=== PATIENT | male | born 1970 | race Caucasian/White ===

== ENCOUNTER 2017-01-11 15:52 | Emergency (ER) | payer OTHER ==
[2017-01-11 16:18] VITALS: BP 137/89; PULSE 97; TEMP 98.6; BMI 30.1
[2017-01-11] MEDS ORDERED: CYCLOBENZAPRINE HCL 10 MG TABLET (FP) ONE (17:42)
[2017-01-11] MEDS ORDERED: KETOROLAC TROMETHAMINE 60 MG/2 ML VIAL ONE (17:42)
[2017-01-11] MEDS ORDERED: CYCLOBENZAPRINE HCL 10 MG TABLET (FP) PO ONE (17:46)
[2017-01-11] MEDS ORDERED: KETOROLAC TROMETHAMINE 60 MG/2 ML VIAL IM ONE (17:46)
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
== END 2017-01-11 19:21 | disposition home or self-care (01) ==
LOC: JERFT 15:52
PROC: 3E0233Z Introduction of Anti-inflammatory into Muscle, Percutaneous Approach (ICD-10-PCS; principal; 2017-01-11)
DX: S39.012A Strain of muscle, fascia and tendon of lower back, initial encounter (principal); S16.1XXA Strain of muscle, fascia and tendon at neck level, initial encounter; X50.0XXA Overexertion from strenuous movement or load, initial encounter; X02.8XXA Other exposure to controlled fire in building or structure, initial encounter; Y92.61 Building [any] under construction as the place of occurrence of the external cause; Y99.0 Civilian activity done for income or pay
CPT/HCPCS: 99281-25

== ENCOUNTER 2017-12-06 12:04 | Emergency (ER) | payer OTHER ==
[2017-12-06 12:29] VITALS: BP 147/93; PULSE 91; TEMP 98.1; BMI 27.9
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
[2017-12-06] MEDS ORDERED: IBUPROFEN 400 MG TABLET (FP) PO ONE ×2 (12:37→13:01)
== END 2017-12-06 13:30 | disposition home or self-care (01) ==
LOC: JER 12:04
DX: S46.811A Strain of other muscles, fascia and tendons at shoulder and upper arm level, right arm, initial encounter (principal); X50.0XXA Overexertion from strenuous movement or load, initial encounter; Y93.89 Activity, other specified; Y92.89 Other specified places as the place of occurrence of the external cause; Y99.0 Civilian activity done for income or pay
CPT/HCPCS: 99281-25

== ENCOUNTER 2019-10-19 22:28 | Observation (INO) | payer OTHER, BC ==
[2019-10-19 22:55] VITALS: BMI 28.7
[2019-10-19] MEDS ORDERED: IBUPROFEN 600 MG TABLET (FP) PO ONE (23:08)
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
[2019-10-19] MEDS ORDERED: SODIUM CHLORIDE 0.9% 500 ML INFUS.BAG IV ONE (23:58)
[2019-10-20 00:21] LABS: ARTERIAL BLD GAS O2 SATURATION 97.6 % (95-98); ARTERIAL BLOOD GAS BASE EXCESS 1.9 meq/l (-2-2); ARTERIAL BLOOD GAS PCO2 30.6 mmHg (35-45); ARTERIAL BLOOD GAS PO2 92.4 mmHg (80-100); ARTERIAL BLOOD GAS pH 7.51 (7.35-7.45); CARBOXYHEMOGLOBIN 0.9 % (0-2)
[2019-10-20 00:25] LABS: ALLENS TEST POSITIVE
[2019-10-20] MEDS ORDERED: IBUPROFEN 600 MG TABLET (FP) PO ONE (00:33)
[2019-10-20] MEDS ORDERED: LIDOCAINE 5% TOPICAL PATCH TP ONE (00:48)
[2019-10-20 00:50] LABS: BASO % 0.8 % (0-2.0); EOS % 0.1 % (0-4.5); HEMATOCRIT 39.1 % (35.4-49); HEMOGLOBIN 13.4 GM/dL (11.7-16.9); LYMPH % 16.7 % (8-40); MCH 29.5 pg (25.7-33.7); MCHC 34.3 g/dl (32.0-35.9); MEAN CELL VOLUME 85.9 fl (80-96); MEAN PLT VOLUME 8.8 fl (7.5-11.1); MONO % 6.4 % (3.8-10.2); PLATELET COUNT 287 K/MM3 (134-434); RBC 4.56 M/mm3 (4.00-5.60); RDW 13.5 % (11.9-15.9); WHITE BLOOD COUNT 12.6 K/mm3 (4.0-10.0)
[2019-10-20 01:12] LABS: ALBUMIN 3.8 g/dl (3.4-5.0); BILIRUBIN,TOTAL 0.4 mg/dL (0.2-1); BLOOD UREA NITROGEN 26.6 mg/dL (7-18); CREATININE 1.4 mg/dL (0.55-1.3); TOT PROT 7.1 g/dl (6.4-8.2)
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
[2019-10-20] MEDS ORDERED: SODIUM CHLORIDE 1,000 ML IV SCH (02:45)
--- NOTE | 2019-10-20 03:29 | HP ---
CHIEF COMPLAINT: Right arm shoulder pain PCP: Dr. 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 Patient complains of worsening arm pain with abduction of his arm. He has a history of sprains and multiple tears in his right shoulder, but no fractures or dislocations. He denies any other acute pains, and endorses chronic lower back pain from his degenerative disc disease. He denies shortness of breath, abdominal pain, nausea, vomiting, diarrhea, headaches, and changes in vision. In the ED patient was noted to have PVC's on his EKG. However patient states that he has had PVCs on previous EKGs done, has had an echo and stress test done multiple years ago which were negative. He endorses adequate water intake along with 5 cups of coffee consumption daily. ER course was notable for: (1)EKG completed which showed frequent PVCs, Qtc 423 (2)Chest X-Ray was completed which did not show any acute pathology. 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 Allergies No Known Allergies Allergy (Verified 10/19/19 22:55) HOME MEDICATIONS: Home Medications Medication Instructions Recorded Cyclobenzaprine HCl [Flexeril -] 10 mg PO TID PRN #15 tablet 02/16/16 Duloxetine HCl [Cymbalta] 120 mg PO DAILY 02/16/16 Lisdexamfetamine Dimesylate 30 mg PO DAILY 02/16/16 [Vyvanse] Ibuprofen 800 mg PO TID #30 tablet MDD 3 06/29/16 Oxycodone HCl/Acetaminophen 1 - 2 tab PO Q4H #20 tablet MDD 6 06/29/16 [Percocet 5-325 mg Tablet] Cyclobenzaprine HCl [Flexeril 10 10 mg PO BID PRN #14 tablet 05/18/17 mg] REVIEW OF SYSTEMS CONSTITUTIONAL: Absent: fever, chills, diaphoresis, generalized weakness, malaise, loss of appetite, weight change HEENT: Absent: rhinorrhea, nasal congestion, throat pain, throat swelling, difficulty swallowing, mouth swelling, ear pain, eye pain, visual changes CARDIOVASCULAR: Absent: chest pain, syncope, palpitations, irregular heart rate, lightheadedness , peripheral edema RESPIRATORY: Absent: cough, shortness of breath, dyspnea with exertion, orthopnea, wheezing, stridor, hemoptysis GASTROINTESTINAL: Absent: abdominal pain, abdominal distension, nausea, vomiting, diarrhea, constipation, melena, hematochezia GENITOURINARY: Absent: dysuria, frequency, urgency, hesitancy, hematuria, flank pain, genital pain MUSCULOSKELETAL: Present: Arthralgia, back pain Absent: myalgia, arthralgia, joint swelling, back pain, neck pain SKIN: Absent: rash, itching, pallor HEMATOLOGIC/IMMUNOLOGIC: Absent: easy bleeding, easy bruising, lymphadenopathy, frequent infections ENDOCRINE: Absent: unexplained weight gain, unexplained weight loss, heat intolerance, cold intolerance NEUROLOGIC: Absent: headache, focal weakness or paresthesias, dizziness, unsteady gait, seizure, mental status changes, bladder or bowel incontinence PSYCHIATRIC: Absent: anxiety, depression, suicidal or homicidal ideation, hallucinations. PHYSICAL EXAMINATION Vital Signs - 24 hr 10/19/19 22:52 Temperature 97 F L Pulse Rate 97 H Respiratory 18 Rate Blood Pressure 146/92 O2 Sat by Pulse 100 Oximetry (%) GENERAL: Awake, alert, and fully oriented, in no acute distress. HEAD: Normal with no signs of trauma. EYES: Pupils equal, round and reactive to light, extraocular movements intact, sclera anicteric, conjunctiva clear. No lid lag. EARS, NOSE, THROAT: Ears normal, nares patent, oropharynx clear without exudates. Moist mucous membranes. NECK: Normal range of motion, supple without lymphadenopathy, JVD, or masses. LUNGS: Breath sounds equal, clear to auscultation bilaterally. No wheezes, and no crackles. No accessory muscle use. HEART: Regular rate and irregular rhythm without murmur, rub or gallop. ABDOMEN: Soft, nontender, not distended, normoactive bowel sounds, no guarding, no rebound, no masses. No hepatomegaly or splenomegaly. MUSCULOSKELETAL: Normal range of motion at all joints. No bony deformities or tenderness. No CVA tenderness. UPPER EXTREMITIES: 2+ pulses, warm, well-perfused. No cyanosis. No clubbing. No peripheral edema. LOWER EXTREMITIES: 2+ pulses, warm, well-perfused. No calf tenderness. No peripheral edema. NEUROLOGICAL: Cranial nerves II-XII intact. Normal speech. Normal gait. PSYCHIATRIC: Cooperative. Good eye contact. Appropriate mood and affect. SKIN: Warm, dry, normal turgor, no rashes or lesions noted, normal capillary refill. Laboratory Results - last 24 hr 10/19/19 10/20/19 10/20/19 23:45 00:10 00:10 WBC 12.6 H RBC 4.56 Hgb 13.4 Hct 39.1 MCV 85.9 MCH 29.5 MCHC 34.3 RDW 13.5 Plt Count 287 MPV 8.8 Absolute Neuts (auto) 9.6 H Neutrophils % 76.0 D Lymphocytes % 16.7 D Monocytes % 6.4 Eosinophils % 0.1 D Basophils % 0.8 Nucleated RBC % 0 Anticoagulation Therapy No Result Required. Puncture Site Right radial ABG pH 7.51 H ABG pCO2 at Pt Temp 30.6 L ABG pO2 at Pt Temp 92.4 ABG HCO3 24.0 ABG O2 Sat (Measured) 97.6 ABG O2 Content 17.6 ABG Base Excess 1.9 Jens Test Positive Carboxyhemoglobin 0.9 Methemoglobin 1.0 O2 Delivery Device N/c Oxygen Flow Rate 2 lpm Vent Mode No Result Required. Vent Rate No Result Required. Mechanical Rate No Result Required. Pressure Support Vent No Result Required. Sodium Potassium Chloride Carbon Dioxide Anion Gap BUN Creatinine Est GFR (CKD-EPI)AfAm Est GFR (CKD-EPI)NonAf Random Glucose Calcium Total Bilirubin AST ALT Alkaline Phosphatase Creatine Kinase 253 Creatine Kinase Index 1.0 CK-MB (CK-2) 2.7 Troponin I < 0.02 Total Protein Albumin 10/20/19 00:10 WBC RBC Hgb Hct MCV MCH MCHC RDW Plt Count MPV Absolute Neuts (auto) Neutrophils % Lymphocytes % Monocytes % Eosinophils % Basophils % Nucleated RBC % Anticoagulation Therapy Puncture Site ABG pH ABG pCO2 at Pt Temp ABG pO2 at Pt Temp ABG HCO3 ABG O2 Sat (Measured) ABG O2 Content ABG Base Excess Jens Test Carboxyhemoglobin Methemoglobin O2 Delivery Device Oxygen Flow Rate Vent Mode Vent Rate Mechanical Rate Pressure Support Vent Sodium 141 Potassium 4.0 Chloride 107 Carbon Dioxide 26 Anion Gap 8 BUN 26.6 H Creatinine 1.4 H Est GFR (CKD-EPI)AfAm 66.95 Est GFR (CKD-EPI)NonAf 57.76 Random Glucose 93 Calcium 9.0 Total Bilirubin 0.4 AST 18 ALT 22 Alkaline Phosphatase 80 Creatine Kinase Creatine Kinase Index CK-MB (CK-2) Troponin I Total Protein 7.1 Albumin 3.8 ASSESSMENT/PLAN: 49 M PMH of depression, degenerative disc, and ADHD who presents who presents with frequent PVC. 1) Multiple PVCs -PVC on cardiac monitoring, endorses known history with negative work up in the pat -Continuous cardiac monitoring. -Initial troponin negative, f/u repeat -Echocardiogram for structural causes -TSH f/u -F/U repeat EKG -Cardiology follow up as outpatient 2) LAY -BUN/Creatinine of 26.6/1.4 today -Likely pre-renal -Given 1L Bolus of NS -NS @ 125 ml/hr 3) Hx of Depression and ADHD -Continue home doses of Cymbalta and Vyvanse. DVT: Early ambulation F: NS @ 125 ml/hr E: Trend BMP N: Regular diet Dispo: Admitted to telemetry observation. Visit type - Emergency Visit Emergency Visit: Yes ED Registration Date: 10/20/19 Care time: The patient presented to the Emergency Department on the above date and was hospitalized for further evaluation of their emergent condition. - New Patient This patient is new to me today: Yes Date on this admission: 10/20/19 - Critical Care Critical Care patient: No ATTENDING PHYSICIAN STATEMENT I saw and evaluated the patient. I reviewed the resident's note and discussed the case with the resident. I agree with the resident's findings and plan as documented. SUBJECTIVE: OBJECTIVE: ASSESSMENT AND PLAN:
[2019-10-20 07:44] LABS: HEMATOCRIT 35.4 % (35.4-49); HEMOGLOBIN 12.1 GM/dL (11.7-16.9); MCH 29.5 pg (25.7-33.7); MCHC 34.3 g/dl (32.0-35.9); MEAN CELL VOLUME 86.1 fl (80-96); MEAN PLT VOLUME 9.4 fl (7.5-11.1); PLATELET COUNT 262 K/MM3 (134-434); RBC 4.12 M/mm3 (4.00-5.60); RDW 13.5 % (11.9-15.9); WHITE BLOOD COUNT 9.4 K/mm3 (4.0-10.0)
[2019-10-20 08:14] LABS: ANION GAP 5 MMOL/L (8-16); BLOOD UREA NITROGEN 25.6 mg/dL (7-18); CALCIUM 8.3 mg/dL (8.5-10.1); CHLORIDE 110 mmol/L (98-107); CO2 28 mmol/L (21-32); CREATININE 1.1 mg/dL (0.55-1.3); GLUCOSE,RANDOM 122 mg/dL (74-106); POTASSIUM 3.6 mmol/L (3.5-5.1); SODIUM 142 mmol/L (136-145)
[2019-10-20 08:42] LABS: MAGNESIUM 2.3 mg/dL (1.8-2.4)
--- NOTE | 2019-10-20 09:14 | EKG ---
Test Reason : Blood Pressure : / mmHG Vent. Rate : 070 BPM Atrial Rate : 070 BPM P-R Int : 138 ms QRS Dur : 108 ms QT Int : 392 ms P-R-T Axes : 060 -25 056 degrees QTc Int : 423 ms SINUS RHYTHM WITH FREQUENT PREMATURE VENTRICULAR COMPLEXES POSSIBLE LEFT ATRIAL ENLARGEMENT INCOMPLETE RIGHT BUNDLE BRANCH BLOCK BORDERLINE ECG WHEN COMPARED WITH ECG OF 12-APR-2018 10:56, PREMATURE VENTRICULAR COMPLEXES ARE NOW PRESENT Confirmed by Lashay Mahajan ([id number]) on 10/20/2019 9:13:38 AM Referred By: Confirmed By:Lashay Mahajan
[2019-10-20 10:11] VITALS: BP 126/85; PULSE 60; TEMP 97.8
[2019-10-20] MEDS ORDERED: LIDOCAINE PATCH REMOVAL MC SCH (22:00)
--- NOTE | 2019-10-20 22:39 | DS ---
Physical Exam: SUBJECTIVE: Patient seen and examined at bedside, refusing to stay in hospital wants to AMA says he "feels fine". OBJECTIVE: Vital Signs Period Temp Pulse Resp BP Sys/Rose Pulse Ox Last 24 Hr 97 F-97.8 F 60-97 17-18 126-146/72-92 97-100 PHYSICAL EXAM GENERAL: The patient is awake, alert, and fully oriented, in no acute distress. HEAD: Normal with no signs of trauma. EYES: PERRL, extraocular movements intact, sclera anicteric, conjunctiva clear. ENT: Ears normal, nares patent, oropharynx clear without exudates, moist mucous membranes. NECK: Trachea midline, full range of motion, supple. LUNGS: Breath sounds equal, clear to auscultation bilaterally, no wheezes, no crackles, no accessory muscle use. HEART: Regular rate and rhythm, S1, S2 without murmur, rub or gallop. ABDOMEN: Soft, nontender, nondistended, normoactive bowel sounds, no guarding, no rebound, no hepatosplenomegaly, no masses. EXTREMITIES: 2+ pulses, warm, well-perfused, no edema. NEUROLOGICAL: Cranial nerves II through XII grossly intact. Normal speech, gait not observed. PSYCH: Normal mood, normal affect. SKIN: Warm, dry, normal turgor, no rashes or lesions noted. LABS Laboratory Results - last 24 hr 10/19/19 10/20/19 10/20/19 23:45 00:10 00:10 WBC 12.6 H RBC 4.56 Hgb 13.4 Hct 39.1 MCV 85.9 MCH 29.5 MCHC 34.3 RDW 13.5 Plt Count 287 MPV 8.8 Absolute Neuts (auto) 9.6 H Neutrophils % 76.0 D Lymphocytes % 16.7 D Monocytes % 6.4 Eosinophils % 0.1 D Basophils % 0.8 Nucleated RBC % 0 Anticoagulation Therapy No Result Required. Puncture Site Right radial ABG pH 7.51 H ABG pCO2 at Pt Temp 30.6 L ABG pO2 at Pt Temp 92.4 ABG HCO3 24.0 ABG O2 Sat (Measured) 97.6 ABG O2 Content 17.6 ABG Base Excess 1.9 Jens Test Positive Carboxyhemoglobin 0.9 Methemoglobin 1.0 O2 Delivery Device N/c Oxygen Flow Rate 2 lpm Vent Mode No Result Required. Vent Rate No Result Required. Mechanical Rate No Result Required. Pressure Support Vent No Result Required. Sodium Potassium Chloride Carbon Dioxide Anion Gap BUN Creatinine Est GFR (CKD-EPI)AfAm Est GFR (CKD-EPI)NonAf Random Glucose Calcium Magnesium Total Bilirubin AST ALT Alkaline Phosphatase Creatine Kinase 253 Creatine Kinase Index 1.0 CK-MB (CK-2) 2.7 Troponin I < 0.02 Total Protein Albumin TSH 10/20/19 10/20/19 10/20/19 00:10 05:48 05:48 WBC 9.4 RBC 4.12 Hgb 12.1 Hct 35.4 MCV 86.1 MCH 29.5 MCHC 34.3 RDW 13.5 Plt Count 262 MPV 9.4 Absolute Neuts (auto) Neutrophils % Lymphocytes % Monocytes % Eosinophils % Basophils % Nucleated RBC % Anticoagulation Therapy Puncture Site ABG pH ABG pCO2 at Pt Temp ABG pO2 at Pt Temp ABG HCO3 ABG O2 Sat (Measured) ABG O2 Content ABG Base Excess Jens Test Carboxyhemoglobin Methemoglobin O2 Delivery Device Oxygen Flow Rate Vent Mode Vent Rate Mechanical Rate Pressure Support Vent Sodium 141 142 Potassium 4.0 3.6 Chloride 107 110 H Carbon Dioxide 26 28 Anion Gap 8 5 L BUN 26.6 H 25.6 H Creatinine 1.4 H 1.1 Est GFR (CKD-EPI)AfAm 66.95 89.61 Est GFR (CKD-EPI)NonAf 57.76 77.32 Random Glucose 93 122 H Calcium 9.0 8.3 L Magnesium 2.3 Total Bilirubin 0.4 AST 18 ALT 22 Alkaline Phosphatase 80 Creatine Kinase Creatine Kinase Index CK-MB (CK-2) Troponin I < 0.02 Total Protein 7.1 Albumin 3.8 TSH 0.42 10/20/19 05:48 WBC RBC Hgb Hct MCV MCH MCHC RDW Plt Count MPV Absolute Neuts (auto) Neutrophils % Lymphocytes % Monocytes % Eosinophils % Basophils % Nucleated RBC % Anticoagulation Therapy Puncture Site ABG pH ABG pCO2 at Pt Temp ABG pO2 at Pt Temp ABG HCO3 ABG O2 Sat (Measured) ABG O2 Content ABG Base Excess Jens Test Carboxyhemoglobin Methemoglobin O2 Delivery Device Oxygen Flow Rate Vent Mode Vent Rate Mechanical Rate Pressure Support Vent Sodium Potassium Chloride Carbon Dioxide Anion Gap BUN Creatinine Est GFR (CKD-EPI)AfAm Est GFR (CKD-EPI)NonAf Random Glucose Calcium Magnesium Cancelled Total Bilirubin AST ALT Alkaline Phosphatase Creatine Kinase Creatine Kinase Index CK-MB (CK-2) Troponin I Total Protein Albumin TSH HOSPITAL COURSE: 49 M h/o depression, degenerative disc disease, and ADHD on Vyvanse who presents today with right shoulder pain after 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 Patient complains of worsening arm pain with abduction of his arm. He has a history of sprains and multiple tears in his right shoulder, but no fractures or dislocations. He denies any other acute pains, and endorses chronic lower back pain from his degenerative disc disease. He denies shortness of breath, abdominal pain, nausea, vomiting, diarrhea, headaches, and changes in vision. In the ED patient was noted to have frequent PVC's on his EKG. Repeat EKG hours later still showed few PVCs. However patient states that he has had PVCs on previous EKGs done, has had an echo and stress test done multiple years ago which were negative. Patient insisted to leave AMA refused admission to the hospital, explained to patient risks of leaving AMA including KS, coma and , patient understood the risks and still insisted to leave AMA. Patient was given copy of EKG and labs and was told to follow up with his PCP Dr. Lui. Date of Admission:10/20/19 Date of Discharge: 10/20/19 Disposition: Patient left AMA. Minutes to complete discharge: 30 Discharge Summary Problems reviewed: Yes Reason For Visit: FREQUENT VENTRICULAR PREMATURE BEATS - Instructions - Home Medications Comprehensive Discharge Medication List: Ambulatory Orders Duloxetine HCl [Cymbalta] 90 mg PO DAILY 02/16/16 Lisdexamfetamine Dimesylate [Vyvanse] 60 mg PO DAILY 02/16/16 This patient is new to me today: Yes Date on this admission: 10/20/19 Emergency Visit: Yes ED Registration Date: 10/20/19 Care time: The patient presented to the Emergency Department on the above date and was hospitalized for further evaluation of their emergent condition. Critical Care patient: No - Discharge Referral Referred to [facility] Med P.C.: No
== END 2019-10-20 11:50 | disposition left against medical advice (07) ==
LOC: JER 22:28 → JERBED 10-20 01:28
PROVIDERS: ADMIT Internal Medicine
PROC: 3E0337Z Introduction of Electrolytic and Water Balance Substance into Peripheral Vein, Percutaneous Approach (ICD-10-PCS; principal; 2019-10-20)
DX: I49.3 Ventricular premature depolarization (principal); N17.9 Acute kidney failure, unspecified; F32.9 Major depressive disorder, single episode, unspecified; F90.9 Attention-deficit hyperactivity disorder, unspecified type; Z87.891 Personal history of nicotine dependence; X00.0XXA Exposure to flames in uncontrolled fire in building or structure, initial encounter; X00.1XXA Exposure to smoke in uncontrolled fire in building or structure, initial encounter; Z57.8 Occupational exposure to other risk factors; Y99.0 Civilian activity done for income or pay
CPT/HCPCS: 36415; 36600; 71045-TC-FY; 80048; 80053; 82375; 82550; 82553; 82803; 83050; 83735; 84443; 84484; 85025; 85027; 93005; 93010; 99285-25; G0378; J7030

== ENCOUNTER 2019-10-23 13:19 | Observation (INO) | payer OTHER, BC ==
[2019-10-23 13:39] VITALS: BMI 28.7
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
[2019-10-23] MEDS ORDERED: SODIUM CHLORIDE 1,000 ML IV STA (13:51)
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
[2019-10-23 15:28] LABS: BASO % 0.3 % (0-2.0); EOS % 0.2 % (0-4.5); HEMATOCRIT 38.9 % (35.4-49); HEMOGLOBIN 13.4 GM/dL (11.7-16.9); LYMPH % 21.9 % (8-40); MCH 29.8 pg (25.7-33.7); MCHC 34.3 g/dl (32.0-35.9); MEAN CELL VOLUME 86.9 fl (80-96); MEAN PLT VOLUME 9.2 fl (7.5-11.1); MONO % 7.7 % (3.8-10.2); NEUT % 69.9 % (42.8-82.8); PLATELET COUNT 304 K/MM3 (134-434); RBC 4.47 M/mm3 (4.00-5.60); RDW 13.4 % (11.9-15.9); WHITE BLOOD COUNT 8.4 K/mm3 (4.0-10.0)
[2019-10-23 15:28] LABS: ALBUMIN 3.6 g/dl (3.4-5.0); ALK PHOS 71 U/L (45-117); ANION GAP 5 MMOL/L (8-16); BILIRUBIN,TOTAL 0.4 mg/dL (0.2-1); CALCIUM 8.7 mg/dL (8.5-10.1); CHLORIDE 108 mmol/L (98-107); CO2 27 mmol/L (21-32); CREATININE 0.9 mg/dL (0.55-1.3); GLUCOSE,RANDOM 97 mg/dL (74-106); MAGNESIUM 2.1 mg/dL (1.8-2.4); POTASSIUM 4.5 mmol/L (3.5-5.1); SGOT/AST 32 U/L (15-37); SGPT/ALT 22 U/L (13-61); SODIUM 140 mmol/L (136-145)
--- NOTE | 2019-10-23 16:10 | EKG ---
Test Reason : Blood Pressure : / mmHG Vent. Rate : 098 BPM Atrial Rate : 098 BPM P-R Int : 150 ms QRS Dur : 104 ms QT Int : 348 ms P-R-T Axes : 056 -20 056 degrees QTc Int : 444 ms SINUS RHYTHM WITH FREQUENT PREMATURE VENTRICULAR COMPLEXES BIATRIAL ENLARGEMENT INCOMPLETE RIGHT BUNDLE BRANCH BLOCK ABNORMAL ECG WHEN COMPARED WITH ECG OF 20-OCT-2019 11:24, VENT. RATE HAS INCREASED BY 43 BPM Confirmed by SHERMAN SHANKS MD ([id number]) on 10/23/2019 4:10:11 PM Referred By: Confirmed By:SHERMAN SHANKS MD
[2019-10-23 16:56] LABS: INR 1.03 (0.83-1.09); PROTHROMBIN TIME (PATIENT) 12.1 SEC (9.7-13.0)
[2019-10-23] MEDS ORDERED: LABETALOL HCL 5 MG/1 ML (100MG/20 ML VIAL) IVPUSH ONE (17:24)
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
[2019-10-23] MEDS ORDERED: HEPARIN NA (PORCINE) 5,000 UNITS/ML 1ML VIAL ONE ×2 (18:06→21:20)
[2019-10-23] MEDS ORDERED: LABETALOL HCL 5 MG/1 ML (200MG/40ML VIAL) IVPB ONE (18:06)
[2019-10-23] MEDS ORDERED: LABETALOL HCL 100 MG TABLET (FP) ONE (21:21)
[2019-10-23] MEDS ORDERED: LABETALOL HCL 100 MG TABLET (FP) PO SCH (22:00)
[2019-10-24] MEDS: HEPARIN NA (PORCINE) 5,000 UNITS/ML 1ML VIAL SQ SCH ×4 (00:15→23:33)
[2019-10-24 00:53] LABS: URINE APPEARANCE Clear; URINE BILIRUBIN Negative (NEGATIVE); URINE COLOR Yellow; URINE GLUCOSE (UA) Negative (NEGATIVE); URINE KETONE Negative (NEGATIVE); URINE LEUK ESTERASE Negative (NEGATIVE); URINE NITRITE Negative (NEGATIVE); URINE PROTEIN Negative (NEGATIVE); URINE UROBILINOGEN 0.2 mg/dL (0.2-1.0)
[2019-10-24] MEDS ORDERED: HEPARIN NA (PORCINE) 5,000 UNITS/ML 1ML VIAL ONE ×2 (05:41→23:29)
[2019-10-24 06:08] LABS: HEMATOCRIT 38.2 % (35.4-49); HEMOGLOBIN 12.9 GM/dL (11.7-16.9); MCH 29.5 pg (25.7-33.7); MCHC 33.9 g/dl (32.0-35.9); MEAN CELL VOLUME 87.1 fl (80-96); PLATELET COUNT 281 K/MM3 (134-434); RBC 4.38 M/mm3 (4.00-5.60); RDW 13.8 % (11.9-15.9); WHITE BLOOD COUNT 7.4 K/mm3 (4.0-10.0)
[2019-10-24 06:42] LABS: ALBUMIN 3.3 g/dl (3.4-5.0); ALK PHOS 61 U/L (45-117); ANION GAP 3 MMOL/L (8-16); BILIRUBIN,TOTAL 0.5 mg/dL (0.2-1); BLOOD UREA NITROGEN 13.8 mg/dL (7-18); CALCIUM 8.5 mg/dL (8.5-10.1); CHLORIDE 109 mmol/L (98-107); CO2 31 mmol/L (21-32); GLUCOSE,RANDOM 92 mg/dL (74-106); MAGNESIUM 2.1 mg/dL (1.8-2.4); SGOT/AST 13 U/L (15-37); SGPT/ALT 18 U/L (13-61); SODIUM 144 mmol/L (136-145); TOT PROT 6.2 g/dl (6.4-8.2)
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
--- NOTE | 2019-10-24 09:21 | EKG ---
Test Reason : Blood Pressure : / mmHG Vent. Rate : 062 BPM Atrial Rate : 062 BPM P-R Int : 150 ms QRS Dur : 102 ms QT Int : 426 ms P-R-T Axes : 065 -19 063 degrees QTc Int : 432 ms SINUS RHYTHM WITH SINUS ARRHYTHMIA WITH OCCASIONAL PREMATURE VENTRICULAR COMPLEXES INCOMPLETE RIGHT BUNDLE BRANCH BLOCK BORDERLINE ECG WHEN COMPARED WITH ECG OF 23-OCT-2019 13:24, VENT. RATE HAS DECREASED BY 36 BPM Confirmed by KADI VERA MD ([id number]) on 10/24/2019 9:21:00 AM Referred By: ARCHANA PETERSON Confirmed By:KADI VERA MD
[2019-10-24] MEDS ORDERED: LISDEXAMFETAMINE DIMESYLATE 60 MG PO SCH (10:00)
[2019-10-24] MEDS ORDERED: DULoxetine HCL 30 MG CAPSULE.DR PO SCH (10:00)
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
[2019-10-24] MEDS ORDERED: DULoxetine HCL 30 MG CAPSULE.DR PO ONE (13:27)
[2019-10-24] MEDS ORDERED: ASPIRIN 81 MG CHEWABLE TABLETS PO SCH (14:00)
[2019-10-24] MEDS ORDERED: ASPIRIN 81 MG CHEWABLE TABLETS ONE (14:09)
--- NOTE | 2019-10-24 14:38 | PN ---
Teaching Attending Note Name of Resident: Megan Velarde ATTENDING PHYSICIAN STATEMENT I saw and evaluated the patient. I reviewed the resident's note and discussed the case with the resident. I agree with the resident's findings and plan as documented. SUBJECTIVE: No further palpitations. No CP/SOB/diaphoresis/lightheadedness. OBJECTIVE: Afebrile, Hemodynamically Stable. Last Vital Signs Temp Pulse Resp BP Pulse Ox 98.2 F 65 18 131/90 98 10/24/19 09:00 10/24/19 09:00 10/24/19 09:00 10/24/19 09:00 10/24/19 04:06 HEENT - Atraumatic, normocephalic. Heart - S1, S2, RRR Lungs - clear to auscultation Abdomen - soft, non-tender. Bowel Sounds normal. Extremities - no edema, no calf tenderness Neuro - AAO x 3. Tone/Power normal all extremities. Laboratory Results - last 24 hr 10/23/19 10/23/19 10/23/19 14:30 14:30 15:10 WBC Cancelled 8.4 Corrected WBC (auto) Cancelled RBC Cancelled 4.47 Hgb Cancelled 13.4 Hct Cancelled 38.9 MCV Cancelled 86.9 MCH Cancelled 29.8 MCHC Cancelled 34.3 RDW Cancelled 13.4 Plt Count Cancelled 304 MPV Cancelled 9.2 Absolute Neuts (auto) Cancelled 5.9 Neutrophils % Cancelled 69.9 Lymphocytes % Cancelled 21.9 D Monocytes % Cancelled 7.7 Eosinophils % Cancelled 0.2 D Basophils % Cancelled 0.3 Nucleated RBC % Cancelled 0 Platelet Estimate Cancelled Platelet Comment Cancelled PT with INR INR PTT (Actin FS) D-Dimer Sodium 140 Potassium 4.5 Chloride 108 H Carbon Dioxide 27 Anion Gap 5 L BUN 14.0 Creatinine 0.9 Est GFR (CKD-EPI)AfAm 114.21 Est GFR (CKD-EPI)NonAf 98.54 Random Glucose 97 Calcium 8.7 Phosphorus Magnesium 2.1 Total Bilirubin 0.4 AST 32 ALT 22 Alkaline Phosphatase 71 Creatine Kinase 210 Creatine Kinase Index No Result Required. CK-MB (CK-2) < 1.0 Troponin I < 0.02 Total Protein 7.0 Albumin 3.6 TSH 1.38 D Urine Color Urine Appearance Urine pH Ur Specific [place] Urine Protein Urine Glucose (UA) Urine Ketones Urine Blood Urine Nitrite Urine Bilirubin Urine Urobilinogen Ur Leukocyte Esterase 10/23/19 10/23/19 10/23/19 15:10 15:30 15:30 WBC Corrected WBC (auto) RBC Hgb Hct MCV MCH MCHC RDW Plt Count MPV Absolute Neuts (auto) Neutrophils % Lymphocytes % Monocytes % Eosinophils % Basophils % Nucleated RBC % Platelet Estimate Platelet Comment PT with INR 12.10 INR 1.03 PTT (Actin FS) 34.0 D-Dimer < 215 Sodium Potassium Chloride Carbon Dioxide Anion Gap BUN Creatinine Est GFR (CKD-EPI)AfAm Est GFR (CKD-EPI)NonAf Random Glucose Calcium Phosphorus 3.9 Magnesium Total Bilirubin AST ALT Alkaline Phosphatase Creatine Kinase Creatine Kinase Index CK-MB (CK-2) Troponin I Total Protein Albumin TSH Urine Color Urine Appearance Urine pH Ur Specific [place] Urine Protein Urine Glucose (UA) Urine Ketones Urine Blood Urine Nitrite Urine Bilirubin Urine Urobilinogen Ur Leukocyte Esterase 10/24/19 10/24/19 10/24/19 00:00 00:00 05:30 WBC 7.4 Corrected WBC (auto) RBC 4.38 Hgb 12.9 Hct 38.2 MCV 87.1 MCH 29.5 MCHC 33.9 RDW 13.8 Plt Count 281 MPV 9.0 Absolute Neuts (auto) Neutrophils % Lymphocytes % Monocytes % Eosinophils % Basophils % Nucleated RBC % Platelet Estimate Platelet Comment PT with INR INR PTT (Actin FS) D-Dimer Sodium Potassium Chloride Carbon Dioxide Anion Gap BUN Creatinine Est GFR (CKD-EPI)AfAm Est GFR (CKD-EPI)NonAf Random Glucose Calcium Phosphorus Magnesium Total Bilirubin AST ALT Alkaline Phosphatase Creatine Kinase Creatine Kinase Index CK-MB (CK-2) Troponin I < 0.02 Total Protein Albumin TSH Urine Color Yellow Urine Appearance Clear Urine pH 6.0 Ur Specific [place] 1.015 Urine Protein Negative Urine Glucose (UA) Negative Urine Ketones Negative Urine Blood Negative Urine Nitrite Negative Urine Bilirubin Negative Urine Urobilinogen 0.2 Ur Leukocyte Esterase Negative 10/24/19 10/24/19 05:30 05:30 WBC Corrected WBC (auto) RBC Hgb Hct MCV MCH MCHC RDW Plt Count MPV Absolute Neuts (auto) Neutrophils % Lymphocytes % Monocytes % Eosinophils % Basophils % Nucleated RBC % Platelet Estimate Platelet Comment PT with INR INR PTT (Actin FS) D-Dimer Sodium 144 Potassium 4.0 Chloride 109 H Carbon Dioxide 31 Anion Gap 3 L BUN 13.8 Creatinine 1.0 Est GFR (CKD-EPI)AfAm 100.55 Est GFR (CKD-EPI)NonAf 86.76 Random Glucose 92 Calcium 8.5 Phosphorus Magnesium 2.1 Total Bilirubin 0.5 AST 13 L ALT 18 Alkaline Phosphatase 61 Creatine Kinase Creatine Kinase Index CK-MB (CK-2) Troponin I < 0.02 Cancelled Total Protein 6.2 L Albumin 3.3 L TSH Urine Color Urine Appearance Urine pH Ur Specific [place] Urine Protein Urine Glucose (UA) Urine Ketones Urine Blood Urine Nitrite Urine Bilirubin Urine Urobilinogen Ur Leukocyte Esterase Current Medications Generic Name Dose Route Start Last Admin Trade Name Freq PRN Reason Stop Dose Admin Aspirin 81 mg 10/24/19 14:00 Asa - PO DAILY VANESSA Duloxetine HCl 60 mg 10/24/19 10:00 10/24/19 13:29 Cymbalta - PO 60 mg DAILY VANESSA Administration Heparin Sodium (Porcine) 5,000 unit 10/23/19 22:00 10/24/19 06:03 Heparin - SQ 5,000 unit TID VANESSA Administration Non-Formulary Medication 60 mg 10/24/19 10:00 Lisdexamfetamine Dimesylate [Vyvanse] PO DAILY [facility], [facility] Home Medications Medication Instructions Recorded Duloxetine HCl [Cymbalta] 60 mg PO DAILY 02/16/16 Lisdexamfetamine Dimesylate 60 mg PO DAILY 02/16/16 [Vyvanse] ASSESSMENT/PLAN: 49 year old male with history of ADHD, Depression, DJD spine, attends the ED complaining of palpitations, found to have frequent PVCs, seen by Cardiology and scheduled for Stress test. 1. Palpitations secondary to frequent PVCs, likely underlying CAD. MIBI positive reversible ischemia suggestive of underlying CAD Serial tropI neg, ECG - SR, PVCs, no acute changes. No adverse telemonitoring events. Echo normal, EF 60% Cardiology consulted, started on Beta Ankit, recommendation for transfer to [facility] for cardiac cath based on MIBI result. Further management as per Cardio. 2. ADHD/Depression - Continue Cymbalta, Vyvanse. For out-patient Psych follow- up for medication modification for possible contribution to PVCs. 3. Hypertension - started on BB Medically optimized for transfer to [facility].
--- NOTE | 2019-10-24 14:50 | DS ---
Physical Exam: SUBJECTIVE: Patient seen and examined. Patient denies palpitations today. No acute events overnight. Denies chest pain, SOB, abd pain, or other concerns. OBJECTIVE: Vital Signs Period Temp Pulse Resp BP Sys/Rose Pulse Ox Last 24 Hr 97.4 F-98.2 F 65-92 16-20 115-168/73-110 97-100 PHYSICAL EXAM GENERAL: Awake, alert, and fully oriented, in no acute distress. HEAD: Normal with no signs of trauma. EYES: EOMI, no ptosis, no scleral icterus EARS, NOSE, THROAT: MMM NECK: Normal range of motion, supple without lymphadenopathy, JVD, or masses. LUNGS: Breath sounds equal, clear to auscultation bilaterally. No wheezes, and no crackles. No accessory muscle use. HEART: Regular rate and rhythm, normal S1 and S2 without murmur, rub or gallop. ABDOMEN: Soft, nontender, not distended, normoactive bowel sounds, no guarding, no rebound, no masses. MUSCULOSKELETAL: No gross bony deformities or tenderness EXTREMITIES: 2+ pulses, warm, well-perfused. No calf tenderness. No peripheral edema. NEUROLOGICAL: Normal speech. gait nor observed. sensation grossly intact. PSYCHIATRIC: Appropriate mood and affect. SKIN: Warm, dry, normal turgor LABS Laboratory Results - last 24 hr 10/23/19 10/23/19 10/23/19 14:30 14:30 15:10 WBC Cancelled 8.4 Corrected WBC (auto) Cancelled RBC Cancelled 4.47 Hgb Cancelled 13.4 Hct Cancelled 38.9 MCV Cancelled 86.9 MCH Cancelled 29.8 MCHC Cancelled 34.3 RDW Cancelled 13.4 Plt Count Cancelled 304 MPV Cancelled 9.2 Absolute Neuts (auto) Cancelled 5.9 Neutrophils % Cancelled 69.9 Lymphocytes % Cancelled 21.9 D Monocytes % Cancelled 7.7 Eosinophils % Cancelled 0.2 D Basophils % Cancelled 0.3 Nucleated RBC % Cancelled 0 Platelet Estimate Cancelled Platelet Comment Cancelled PT with INR INR PTT (Actin FS) D-Dimer Sodium 140 Potassium 4.5 Chloride 108 H Carbon Dioxide 27 Anion Gap 5 L BUN 14.0 Creatinine 0.9 Est GFR (CKD-EPI)AfAm 114.21 Est GFR (CKD-EPI)NonAf 98.54 Random Glucose 97 Calcium 8.7 Phosphorus Magnesium 2.1 Total Bilirubin 0.4 AST 32 ALT 22 Alkaline Phosphatase 71 Creatine Kinase 210 Creatine Kinase Index No Result Required. CK-MB (CK-2) < 1.0 Troponin I < 0.02 Total Protein 7.0 Albumin 3.6 TSH 1.38 D Urine Color Urine Appearance Urine pH Ur Specific [place] [address] [place] Urine Protein Urine Glucose (UA) Urine Ketones Urine Blood Urine Nitrite Urine Bilirubin Urine Urobilinogen Ur Leukocyte Esterase 10/23/19 10/23/19 10/23/19 15:10 15:30 15:30 WBC Corrected WBC (auto) RBC Hgb Hct MCV MCH MCHC RDW Plt Count MPV Absolute Neuts (auto) Neutrophils % Lymphocytes % Monocytes % Eosinophils % Basophils % Nucleated RBC % Platelet Estimate Platelet Comment PT with INR 12.10 INR 1.03 PTT (Actin FS) 34.0 D-Dimer < 215 Sodium Potassium Chloride Carbon Dioxide Anion Gap BUN Creatinine Est GFR (CKD-EPI)AfAm Est GFR (CKD-EPI)NonAf Random Glucose Calcium Phosphorus 3.9 Magnesium Total Bilirubin AST ALT Alkaline Phosphatase Creatine Kinase Creatine Kinase Index CK-MB (CK-2) Troponin I Total Protein Albumin TSH Urine Color Urine Appearance Urine pH Ur Specific [address] [place] Urine Protein Urine Glucose (UA) Urine Ketones Urine Blood Urine Nitrite Urine Bilirubin Urine Urobilinogen Ur Leukocyte Esterase 10/24/19 10/24/19 10/24/19 00:00 00:00 05:30 WBC 7.4 Corrected WBC (auto) RBC 4.38 Hgb 12.9 Hct 38.2 MCV 87.1 MCH 29.5 MCHC 33.9 RDW 13.8 Plt Count 281 MPV 9.0 Absolute Neuts (auto) Neutrophils % Lymphocytes % Monocytes % Eosinophils % Basophils % Nucleated RBC % Platelet Estimate Platelet Comment PT with INR INR PTT (Actin FS) D-Dimer Sodium Potassium Chloride Carbon Dioxide Anion Gap BUN Creatinine Est GFR (CKD-EPI)AfAm Est GFR (CKD-EPI)NonAf Random Glucose Calcium Phosphorus Magnesium Total Bilirubin AST ALT Alkaline Phosphatase Creatine Kinase Creatine Kinase Index CK-MB (CK-2) Troponin I < 0.02 Total Protein Albumin TSH Urine Color Yellow Urine Appearance Clear Urine pH 6.[address] [place] 1.015 Urine Protein Negative Urine Glucose (UA) Negative Urine Ketones Negative Urine Blood Negative Urine Nitrite Negative Urine Bilirubin Negative Urine Urobilinogen 0.2 Ur Leukocyte Esterase Negative 10/24/19 10/24/19 05:30 05:30 WBC Corrected WBC (auto) RBC Hgb Hct MCV MCH MCHC RDW Plt Count MPV Absolute Neuts (auto) Neutrophils % Lymphocytes % Monocytes % Eosinophils % Basophils % Nucleated RBC % Platelet Estimate Platelet Comment PT with INR INR PTT (Actin FS) D-Dimer Sodium 144 Potassium 4.0 Chloride 109 H Carbon Dioxide 31 Anion Gap 3 L BUN 13.8 Creatinine 1.0 Est GFR (CKD-EPI)AfAm 100.55 Est GFR (CKD-EPI)NonAf 86.76 Random Glucose 92 Calcium 8.5 Phosphorus Magnesium 2.1 Total Bilirubin 0.5 AST 13 L ALT 18 Alkaline Phosphatase 61 Creatine Kinase Creatine Kinase Index CK-MB (CK-2) Troponin I < 0.02 Cancelled Total Protein 6.2 L Albumin 3.3 L TSH Urine Color Urine Appearance Urine pH Ur Specific [address] [place] Urine Protein Urine Glucose (UA) Urine Ketones Urine Blood Urine Nitrite Urine Bilirubin Urine Urobilinogen Ur Leukocyte Esterase HOSPITAL COURSE: Date of Admission:10/23/19 Date of Discharge: 10/24/19 50 y/o/m with PMHx of ADHD and depression presented to the ED due to palpitations. Patient denied palpitations after arrival to the ED. Patient's troponin levels were negative x3. Echocardiogram was completed which did not show any significant abnormalities. EKG showed NSR with frequent PVCs. Patient had a stress test completed which showed 2 areas of low perfusion. 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 Patient to be transferred to [facility] for further care and cardiac cath. Patient blood pressure was noted to be elevated whille here, was given Labetalol with good effect. Patient's home medications were continued appropriately. Recommended that patient follow up with his psychiatrist as he is on Vyvanse which may cause palpitations. Patient stable for transfer to [facility]. Minutes to complete discharge: 36 Discharge Summary Problems reviewed: Yes Reason For Visit: PALPITATIONS Current Active Problems Hypertensive emergency (Acute) PVC (premature ventricular contraction) (Acute) Condition: Stable - Instructions Diet, Activity, Other Instructions: You presented to the hospital with chest palpitations. Your EKGs showed frequent pre-ventricular contractions but without any evidence of a heart attack. We did blood test which did not show any signs of damage to your heart. Your blood pressure was elevated during this admission and you were given medication for the elevated blood pressure. You had an echocardiogram done which did not show any significant abnormalities. However, your stress test did show two areas of low perfusion. Dr. Santos discussed this finding with you decided to have a cardiac catheterization completed and are being transferred to [facility] for further care. Follow up with the following physicians: 1. Please follow up with your primary care provider within one week of discharge for further management of your medical conditions and to discuss the medications that were started while you were in the hospital. 2. Please follow up with Dr. Santos, Cardiology, for further workup regarding the palpitations you felt. 3. Please follow up with your Psychiatrist within 1 week of discharge to discuss the use of your Vyvnse medication. Activity and Diet 1. Please monitor your diet as you need to intake foods with less salt and drink plenty of fluids. Continue all your other medications as prescribed Please return to the ER if you have any signs or symptoms of chest pain, shortness of breath, uncontrollable fever, chills, nausea, vomiting, numbness, tingling, or weakness in any part of your body, changes in vision, or slurred speech. Please return to the ER if symptoms persist, worsen, or new symptoms arise. Referrals: Fidel Santos MD [Staff Physician] - ON STAFF,NOT [Primary Care Provider] - Disposition: TRANSFER ACUTE CARE/OTHER HOSP - Home Medications Comprehensive Discharge Medication List: Ambulatory Orders Duloxetine HCl [Cymbalta] 60 mg PO DAILY 02/16/16 Lisdexamfetamine Dimesylate [Vyvanse] 60 mg PO DAILY 02/16/16 Aspirin [ASA -] 81 mg PO DAILY tab.chew 10/24/19 This patient is new to me today: No Emergency Visit: Yes ED Registration Date: 10/23/19 Care time: The patient presented to the Emergency Department on the above date and was hospitalized for further evaluation of their emergent condition. Critical Care patient: No - Discharge Referral Referred to [facility] Med P.C.: No ATTENDING PHYSICIAN STATEMENT I saw and evaluated the patient. I reviewed the resident's note and discussed the case with the resident. I agree with the resident's findings and plan as documented. SUBJECTIVE: OBJECTIVE: ASSESSMENT AND PLAN:
[2019-10-24 19:43] VITALS: BP 128/83; PULSE 69
[2019-10-24 22:15] VITALS: TEMP 98.1
== END 2019-10-25 00:11 | disposition short-term general hospital (02) ==
LOC: JER 13:19 → SUPCPDRO 13:19 → UNDOADMOB 16:33 → INTOOBSV 16:33 → JERBED 16:33
PROVIDERS: ADMIT Internal Medicine
PROC: 3E033GC Introduction of Other Therapeutic Substance into Peripheral Vein, Percutaneous Approach (ICD-10-PCS; principal; 2019-10-23)
PROC: 3E0337Z Introduction of Electrolytic and Water Balance Substance into Peripheral Vein, Percutaneous Approach (ICD-10-PCS; 2019-10-23)
PROC: 3E013GC Introduction of Other Therapeutic Substance into Subcutaneous Tissue, Percutaneous Approach (ICD-10-PCS; 2019-10-23)
DX: I49.3 Ventricular premature depolarization (principal); I16.1 Hypertensive emergency; R00.2 Palpitations; F32.9 Major depressive disorder, single episode, unspecified; F90.9 Attention-deficit hyperactivity disorder, unspecified type; Z82.49 Family history of ischemic heart disease and other diseases of the circulatory system
CPT/HCPCS: 36415; 71045-TC-FY; 78452-TC; 80053; 81003; 82550; 82553; 83735; 84100; 84443; 84484; 85025; 85027; 85379; 85610; 85730; 93005; 93010; 93017; 93306-TC; 99285-25; A9502; G0378; J1644; J7030

== ENCOUNTER 2023-11-10 14:06 | Emergency (ER) | payer OTHER ==
[2023-11-10 14:18] VITALS: BP 131/89; PULSE 98; RESP 18; TEMP 97.8; BMI 28.7
[2023-11-10] MEDS ORDERED: LIDOCAINE 4% PATCH TP ONE (15:34)
[2023-11-10] MEDS ORDERED: KETOROLAC TROMETHAMINE 30 MG/1 ML VIAL ONE (15:34)
[2023-11-10] MEDS ORDERED: ACETAMINOPHEN 500 MG TABLET (FP) ONE (15:34)
[2023-11-10] MEDS: ACETAMINOPHEN 500 MG TABLET (FP) PO ONE (15:38)
[2023-11-10] MEDS: LIDOCAINE 4% PATCH TP ONE (15:38)
[2023-11-10] MEDS: KETOROLAC TROMETHAMINE 30 MG/1 ML VIAL IM ONE (15:38)
[2023-11-10] MEDS ORDERED: LIDOCAINE PATCH REMOVAL MC SCH (22:00)
== END 2023-11-10 15:40 | disposition home or self-care (01) ==
LOC: JERFT 14:06 → JER 14:06 → JERFT 15:40
PROC: 3E0233Z Introduction of Anti-inflammatory into Muscle, Percutaneous Approach (ICD-10-PCS; principal; 2023-11-10)
DX: S43.401A Unspecified sprain of right shoulder joint, initial encounter (principal); X50.9XXA Other and unspecified overexertion or strenuous movements or postures, initial encounter; Y99.0 Civilian activity done for income or pay
CPT/HCPCS: 73030-TC-RT-FY; 99284-25

== ENCOUNTER 2024-08-23 04:27 | Emergency (ER) | payer OTHER ==
[2024-08-23 04:35] VITALS: BP 147/99; PULSE 89; RESP 20; TEMP 98.6; BMI 29.4
[2024-08-23] MEDS ORDERED: ACETAMINOPHEN 325 MG TABLET (FP) ONE (04:55)
[2024-08-23] MEDS ORDERED: LIDOCAINE 4% PATCH TP ONE (04:56)
[2024-08-23] MEDS: LIDOCAINE 5% TOPICAL PATCH TP ONE (04:59)
[2024-08-23] MEDS: ACETAMINOPHEN 500 MG TABLET (FP) PO ONE (04:59)
[2024-08-23] MEDS ORDERED: LIDOCAINE PATCH REMOVAL MC SCH (22:00)
== END 2024-08-23 05:17 | disposition home or self-care (01) ==
LOC: JER 04:27
DX: M25.512 Pain in left shoulder (principal); X50.0XXA Overexertion from strenuous movement or load, initial encounter; Y99.0 Civilian activity done for income or pay
CPT/HCPCS: 99283-25